=== PATIENT | female | born 1975 | race Two or more races ===

== ENCOUNTER 2024-10-22 17:24 | Emergency (ER) | payer MEDICARE, MEDICAID, SELFPAY ==
--- NOTE | 2024-10-22 17:34 | XR_ITS ---
Examination: CT abdomen and pelvis without contrast. Coronal 3-D reconstructions. Sagittal 2-D reconstructions. Date and time of exam:October 22, 20242037 hours Comparison February 03, 2024 INDICATIONS: Onset abdominal pain today CTDI: vol (mGy): 11.2 DLP: (mGycm): 584 Technique: Axial images of the abdomen have been obtained, 3 mm slice thickness Intravenous contrast material has not been administered. Low dose protocols were performed. One or more of the following dose reduction techniques were used; automated exposure control, adjustment of the mA and/or KV according to patient size, use of iterative reconstruction technique. Findings: No focal liver or splenic lesions Absent gallbladder No pancreatic or adrenal mass No renal or ureteral calculi, no hydronephrosis Aorta normal size 8 mm fat-containing umbilical hernia Absent appendix No bowel obstruction No diverticulitis Atrophic retroverted uterus No adnexal mass No bladder mass or bladder calculi The osseous structures are intact IMPRESSION: No renal or ureteral calculi, no hydronephrosis Absent appendix No bowel obstruction diverticulitis or free air
--- NOTE | 2024-10-22 17:34 | PD.EDRME ---
Rapid Medical Screening Exam RME Arrival date/time: 10/22/24 17:24 49-year-old female with a history of deafness presents to the emergency room with a chief complaint of generalized 10 out of 10 abdominal pain and tenderness, vomiting, diarrhea, fevers x 1 day I have greeted and performed a focused initial assessment of this patient. A comprehensive ED assessment and evaluation of the patient, analysis of all test results, and completion of the medical decision making process will be conducted by additional ED providers. Chief Complaint: Abdominal Pain Vital signs reviewed by provider: Yes
[2024-10-22 17:37] VITALS: BP 147/86; PULSE 95; RESP 16; TEMP 36.9; O2SAT 98; BMI 39.9
[2024-10-22] MEDS: ONDANSETRON ODT 4 MG TABRAP PO (17:40)
[2024-10-22 18:25] LABS: Alanine Aminotransferase 22 U/L (10-49); Albumin/Globulin Ratio 1.8 (1.2-2.2); Alkaline Phosphatase 96 U/L (46-116); Anion Gap 8 (7-16); Aspartate Amino Transferase 23 U/L (0-34); BUN/Creatinine Ratio 20 Ratio (12-20); Bilirubin,Total 0.7 mg/dL (0.3-1.2); Blood Urea Nitrogen 16 mg/dL (9-23); Calcium 9.4 mg/dL (8.3-10.6); Calcium (Corrected) 9.4 mg/dL (8.5-10.1); Carbon Dioxide 27.5 mMol/L (20.0-31.0); Chloride 104 mMol/L (98-107); Creatinine (Component) 0.8 mg/dL (0.6-1.3); Estimated Creatinine Clearance 81.2 mL/min (>60); Globulin 2.8 gm/dL (2.3-3.5); Glucose 109 mg/dL (74-106); Lipase 29 U/L (12-53); Osmolality,Calculated 279 (275-295); Potassium 4.4 mMol/L (3.4-5.1); Sodium 139 mMol/L (136-145); Total Protein 7.8 gm/dL (5.7-8.2); eGFR > 60 See Note
[2024-10-22 18:26] LABS: Basophils % (Auto) 0 % (0-2.5); Eosinophils # (Auto) 0.1 Thou/mm3 (0.0-0.5); Eosinophils % (Auto) 1 % (0-10); Hematocrit 43.7 % (36.0-46.0); Hemoglobin 14.7 g/dL (12.0-16.0); Immature Granulocytes % (Auto) 0 % (0-0); Immature Granulocytes Auto 0.02 Thou/mm3 (0.00-0.00); Lymphocytes # (Auto) 0.8 Thou/mm3 (1.0-4.8); Lymphocytes % (Auto) 7 % (10-50); Mean Corpuscular HGB Conc 33.6 g/dl (31.0-37.0); Mean Corpuscular Hemoglobin 29.3 pg (25.0-35.0); Mean Corpuscular Volume 87 fL (80-100); Monocytes # (Auto) 0.4 Thou/mm3 (0.0-0.8); Monocytes % (Auto) 3 % (0-12); Neutrophils # (Auto) 10.4 Thou/mm3 (1.8-7.7); Neutrophils % (Auto) 88 % (37-80); Nucleated Red Blood Cell % 0 /100 WBC (0); Platelet Count 283 Thou/mm3 (140-440); RDW Standard Deviation 42.1 fL (36.4-46.3); Red Blood Count 5.01 Miln/mm3 (4.00-5.20); White Blood Count 11.7 Thou/mm3 (3.6-11.0)
[2024-10-22 19:07] LABS: Collection Type, Urine Clean Catch
[2024-10-22 19:29] LABS: Bacteria,Urine Rare; Bilirubin,Urine Negative (Negative); Blood,Urine Negative (Negative); Clarity,Urine Clear (Clear/Hazy); Color,Urine Lt-Yellow (Lt Yel-Yel); Glucose, Urine Negative (Negative); Ketones,Urine Negative (Negative); Leukocyte Esterase,Urine Negative (Negative); Nitrite,Urine Negative (Negative); Protein,Urine Negative (Neg - Trace); RBC,Urine 3 /hpf (0-3); Squamous Epithelial Cell,Urine 4 /hpf (0-5); Urobilinogen,Urine Negative mg/dL (0.0-1.0); WBC,Urine 2 /hpf (0-5)
[2024-10-22 19:32] LABS: HCG Qualitative,Urine Negative
[2024-10-22 22:10] VITALS: BP 153/91; PULSE 99; RESP 18; TEMP 37.7; O2SAT 99
--- NOTE | 2024-10-22 22:30 | PD.EDNV ---
Nausea/Vomit./Diarrhea-RME/HPI General Chief complaint: Abdominal Pain Stated complaint: VOMITING, DIARRHEA, ABD PAIN Time Seen by Provider: 10/22/24 22:02 Arrival date/time: 10/22/24 17:24 RME / HPI RME / HPI Narrative: 49-year-old female with a history of deafness presents to the emergency room with a chief complaint of generalized 10 out of 10 abdominal pain and tenderness, vomiting, diarrhea. Severity of symptoms moderate. Vomiting and diarrhea are nonbloody. Denies any fever denies any other complaints no medications taken prior to arrival. Related Data Previous Rx's ?Medication ?Instructions ?Recorded cyclobenzaprine 10 mg tablet 10 mg PO TID PRN muscle spasm #20 11/02/23 tabs celecoxib 100 mg capsule 100 mg PO BID PRN breakthrough 01/15/24 pain, severe #30 caps bisacodyl 5 mg tablet,delayed 5 mg PO QHS 30 days #30 tabs 01/16/24 release (Dulcolax (bisacodyl)) albuterol sulfate 90 mcg/actuation 1 inh inhalation QID PRN shortness 01/31/24 aerosol inhaler (Ventolin HFA) of breath or wheezing #8.5 grams famotidine 20 mg tablet 20 mg PO BID #30 tabs 02/03/24 sucralfate 100 mg/mL oral 5 ml PO QID #400 mL 02/03/24 suspension (Carafate) cetirizine 10 mg tablet 10 mg PO QDAY PRN allergy symptoms 04/19/24 #14 tabs cetirizine 10 mg tablet (All Day 10 mg PO QDAY PRN allergy symptoms 05/08/24 Allergy (cetirizine)) 1 month #30 tabs prednisone 5 mg tablet 5 mg PO BID 1 month #60 tabs 05/08/24 triamcinolone acetonide 0.5 % 1 applic topical BID #15 grams 05/08/24 topical ointment diclofenac sodium 3 % topical gel 1 applic topical BID #100 grams 08/05/24 hydroxyzine HCl 25 mg tablet 25 mg PO BID PRN anxiety #60 tabs 08/05/24 semaglutide (weight loss) 0.25 0.25 mg (0.5 mL) subcut QWEEK #2 mL 08/05/24 mg/0.5 mL subcutaneous pen injector (Hayden) dicyclomine 20 mg tablet 20 mg PO TID #30 tabs 10/22/24 ondansetron HCl 4 mg tablet 4 mg PO Q8H PRN nausea and 10/22/24 vomiting 5 days #20 tabs Allergies Allergy/AdvReac Type Severity Reaction Status Date / Time No Known Allergies Allergy Verified 10/22/24 17:26 Review of Systems Review of Systems Narrative Review of Systems: Review of system reviewed and within normal limits except mentioned in HPI ED Exam Narrative Physical exam: VITAL SIGNS: Reviewed. GENERAL APPEARANCE: Alert and interactive, follows commands, no acute distress, HEAD AND FACE: Non-traumatic. ENT: PERRL, pink conjunctivitis, eyelid no trauma, Mucous membrane moist. NECK: Supple, nontender, no nuchal rigidity. CHEST: No tenderness, no crepitus, no paradoxical movement, no retractions. LUNGS: Clear, well ventilated, symmetric, no rales, no wheezing, no ronchi, no stridor, good breath sounds bilaterally. HEART: Regular rate, regular rhythm, no murmur, no gallops. ABDOMEN: Soft, positive bowel sounds, nondistended, no guarding, nontender, no rebound, no masses, RECTAL: Deferred. GENITAL: Deferred. NEUROLOGICAL: Gross motor function intact sensory function intact, Appropriate for age. MUSCULOSKELETAL: low back nontender, full range of motion. EXTREMITIES: Nontender, full range of motion. SKIN: Color pink, dry, no rash, no lacerations, no abrasions, no contusions. LYMPHATICS: Deferred. Course Quality Measures none Orders Category Date Time Status Bedside COVID-19 Antigen Test NOW Care 10/22/24 17:35 Active Bedside Influenza A&B Antigen Test NOW Care 10/22/24 17:[address] abdomen pelvis wo con Stat Exams 10/22/24 17:34 Completed CBC Stat Lab 10/22/24 17:57 Completed CMP [Comprehensive Metabolic Panel] Stat Lab 10/22/24 17:57 Completed HCG Qualitative,Urine Stat Lab 10/22/24 18:58 Completed Lipase Stat Lab 10/22/24 17:57 Completed UA [Urinalysis] Stat Lab 10/22/24 18:58 Completed Urine Culture Stat Lab 10/22/24 18:58 Received Diphenoxylate/Atrop Sulf [Lomotil] Med 10/22/24 22:24 Discontinued 1 tab PO X1 ONE Ketorolac Inj [Toradol Inj] Med 10/22/24 22:24 Discontinued 30 mg IM X1 ONE Metoclopramide [Reglan] Med 10/22/24 22:24 Discontinued 10 mg PO X1 ONE Ondansetron Odt [Zofran Odt] Med 10/22/24 17:34 Discontinued 4 mg PO X1 ONE Vital Signs Vital signs: Vital Signs Temperature 98.4 F 10/22/24 17:37 Pulse Rate 95 10/22/24 17:37 Respiratory Rate 16 10/22/24 17:37 Blood Pressure 147/86 H 10/22/24 17:37 Pulse Oximetry (%) 98 10/22/24 17:37 Oxygen Delivery Method Room Air 10/22/24 17:37 Nausea/Vomiting/Diarrhea [facility] Narrative [facility] Narrative:: 49-year-old female with a history of deafness presents to the emergency room with a chief complaint of generalized 10 out of 10 abdominal pain and tenderness, vomiting, diarrhea. Severity of symptoms moderate. Vomiting and diarrhea are nonbloody. Denies any fever denies any other complaints no medications taken prior to arrival. Patient's workup today all came back unremarkable. CT scan of the abdomen also came back normal. Urinalysis no UTI. Results discussed with the patient via signs and displays salesperson. Patient understand the plan of care. Patient is stable for discharge home. Patient received Toradol IM, Lomotil, Reglan and Zofran. No recurrence of vomiting or diarrhea in the emergency room Patient appears nontoxic and hemodynamically stable. Patient discharged home and instructed to follow-up with primary care provider in 24 to 48 hours. Instructed to return to the emergency department immediately if worsening of symptoms Patient data External records reviewed:: None Clinical information provided by:: none Social determinants that could affect healthcare access:: none Patient has the following chronic illnesses:: None How is presenting disease/condition affected by chronic disease/condition?: no chronic disease Evaluation data The following diagnostics were reviewed and interpreted by me:: lab results and radiology exam(s) Lab and/or radiology exams considered but not ordered:: None Interpretation Summary: See results in MDM Medications / Prescriptions Medications / Prescriptions considered but not ordered:: None Medication administrations:: Medication Administration History Discontinued Medications Diphenoxylate HCl/Atropine (Diphenoxylate/Atrop Sulf 1 Tab) 1 tab PO X1 ONE Stop: 10/22/24 22:25 Ketorolac Tromethamine (Ketorolac Inj 60 Mg/2 Ml Vial) 30 mg IM X1 ONE Stop: 10/22/24 22:25 Metoclopramide HCl (Metoclopramide 5 Mg Tablet) 10 mg PO X1 ONE Stop: 10/22/24 22:25 Ondansetron HCl (Ondansetron Odt 4 Mg Tabrap) 4 mg PO X1 ONE; Protocol Stop: 10/22/24 17:35 Last Admin: 10/22/24 17:40 Dose: 4 mg Documented By: Lomotil, Toradol IM, Reglan and Zofran Consultations Consultation(s) initiated? (list below): No Diagnosis Nausea Differential Diagnosis: traveler's diarrhea and gastroenteritis Most likely diagnosis given after review of the tests above:: Gastroenteritis Admission Indicated Admission indicated?: not indicated Explain why admission is indicated or not indicated:: Stable Admission Request Was there a request for admission?: No Disposition Plan Disposition Plan: Discharge Discharge Attestation Discharge Attestation: The patient was given an opportunity to ask questions and understood the discharge instructions. Discharge instructions specifically effects, indications for sooner follow up or return to the emergency department, and the expected course of current diagnosis. Patient condition: Stable Discharge Plan Plan Patient Disposition: HOME (Self Care) Disposition Comment: stable Prescriptions/Referrals Prescriptions/Med Rec: New ondansetron HCl 4 mg tablet 4 mg PO Q8H PRN (Reason: nausea and vomiting) 5 Days Qty: 20 0RF dicyclomine 20 mg tablet 20 mg PO TID Qty: 30 0RF No Action celecoxib 100 mg capsule 100 mg PO BID PRN (Reason: breakthrough pain, severe) Qty: 30 0RF triamcinolone acetonide 0.5 % ointment 1 applic topical BID Qty: 15 0RF cetirizine [All Day Allergy (cetirizine)] 10 mg tablet 10 mg PO QDAY PRN (Reason: allergy symptoms) 30 Days Qty: 30 2RF prednisone 5 mg tablet 5 mg PO BID 30 Days Qty: 60 2RF Taper: Prednisone Taper 5 mg TWICE A DAY for 30 Days and 12 Hours bisacodyl [Dulcolax (bisacodyl)] 5 mg tablet,delayed release (DR/EC) 5 mg PO QHS 30 Days Qty: 30 1RF hydroxyzine HCl 25 mg tablet 25 mg PO BID PRN (Reason: anxiety) Qty: 60 0RF Rx Instructions: Bobo Vaughn Medical License number [id number] Wegovy 0.25 mg/0.5 mL pen injector 0.25 mg subcut QWEEK Qty: 2 3RF Rx Instructions: administer weeks 1 through 4 of therapy diclofenac sodium 3 % gel 1 applic topical BID Qty: 100 0RF cyclobenzaprine 10 mg tablet 10 mg PO TID PRN (Reason: muscle spasm) Qty: 20 0RF albuterol sulfate [Ventolin HFA] 90 mcg/actuation HFA aerosol inhaler 1 inh inhalation QID PRN (Reason: shortness of breath or wheezing) Qty: 8.5 0RF famotidine 20 mg tablet 20 mg PO BID Qty: 30 0RF sucralfate [Carafate] 100 mg/mL suspension 5 ml PO QID Qty: 400 0RF Rx Instructions: swish in mouth and swallow; use after food/drink cetirizine 10 mg tablet 10 mg PO QDAY PRN (Reason: allergy symptoms) Qty: 14 0RF Referrals: No Primary/Family,Physician [Primary Care Provider] - In 1 week Problem List Clinical Impression: Gastroenteritis Patient/Caregiver Discharge Instructions Discharge Activity: activity as tolerated Education Materials: ED Gastroenteritis, Noninfectious Additional Instructions: Thank you for the opportunity for serving you today. You are stable for discharged . You are advised to: Follow-up with your PCP in 1 to 2 days Return to ED for worsening of symptoms Increase oral fluids Take medication as prescribed Print Language: Sign Language Stand Alone Forms: Audrey Award Info., Patient Portal Info Letter PA/MONUMENTAL STONEMASON Supervising Physician PA/MONUMENTAL STONEMASON Supervising Physician: MD Ramos
[2024-10-22] MEDS: DIPHENOXYLATE/ATROP SULF 1 TAB PO (22:33)
[2024-10-22] MEDS: METOCLOPRAMIDE 5 MG TABLET 10 MG PO (22:33)
[2024-10-22] MEDS: KETOROLAC INJ 60 MG/2 ML VIAL 30 MG IM (22:35)
== END 2024-10-22 23:11 | disposition home or self-care (01) ==
PROVIDERS: Nurse Practitioner Family; Emergency Provider Emergency Medicine
DX: K52.9 Noninfective gastroenteritis and colitis, unspecified (principal)
CPT/HCPCS: 36415; 74176; 80053; 81001; 81025; 83690; 85025; 87086; 87400; 87811; 96372; 99284; J1885; Q0162; A9270

== ENCOUNTER 2024-10-30 13:25 | Outpatient (AMB) | payer MEDICARE, SELFPAY ==
[2024-10-30 13:35] VITALS: BP 128/82; PULSE 72; RESP 16; TEMP 36.4; O2SAT 95; BMI 40.4
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
== END 2024-10-30 14:36 | disposition home or self-care (01) ==
LOC: HODAHC 13:25
PROVIDERS: Supervising Provider Internal Medicine
DX: K59.00 Constipation, unspecified (principal); R11.0 Nausea; R19.7 Diarrhea, unspecified; M35.3 Polymyalgia rheumatica; E66.01 Morbid (severe) obesity due to excess calories; Z68.41 Body mass index [BMI] 40.0-44.9, adult
CPT/HCPCS: 99213; G0463

== ENCOUNTER 2025-02-07 17:19 | Emergency (ER) | payer MEDICARE, MEDICAID, SELFPAY ==
[2025-02-07 17:31] VITALS: BP 152/94; PULSE 99; RESP 20; TEMP 36.7; O2SAT 95; BMI 34.5
--- NOTE | 2025-02-07 18:08 | PD.EDADULT ---
ED General RME/HPI General Chief complaint: General Adult/Misc Complain Stated complaint: DIFF BREATHING D/T ALLERGIES, CAN'T SLEEP Time Seen by Provider: 02/07/25 17:41 Source: patient Arrival date/time: 02/07/25 17:19 49-year-old female who is deaf complains of a congested nose that will not allow her to breathe. Also complains of a bloody nose on the right nasal passage this happened on Saturday up to 3 different times. Also complains of sneezing and not being able to sleep. Mode of arrival: ambulatory Limitations: no limitations RME / HPI Onset (ago): day(s) (3 days.) Location: face (Nose) Severity: moderate Severity scale (1-10): 5 Related Data Previous Rx's ?Medication ?Instructions ?Recorded cyclobenzaprine 10 mg tablet 10 mg PO TID PRN muscle spasm #20 11/02/23 tabs celecoxib 100 mg capsule 100 mg PO BID PRN breakthrough 01/15/24 pain, severe #30 caps albuterol sulfate 90 mcg/actuation 1 inh inhalation QID PRN shortness 01/31/24 aerosol inhaler (Ventolin HFA) of breath or wheezing #8.5 grams sucralfate 100 mg/mL oral 5 ml PO QID #400 mL 02/03/24 suspension (Carafate) cetirizine 10 mg tablet 10 mg PO QDAY PRN allergy symptoms 04/19/24 #14 tabs cetirizine 10 mg tablet (All Day 10 mg PO QDAY PRN allergy symptoms 05/08/24 Allergy (cetirizine)) 1 month #30 tabs triamcinolone acetonide 0.5 % 1 applic topical BID #15 grams 05/08/24 topical ointment hydroxyzine HCl 25 mg tablet 25 mg PO BID PRN anxiety #60 tabs 08/05/24 semaglutide (weight loss) 0.25 0.25 mg (0.5 mL) subcut QWEEK #2 mL 08/05/24 mg/0.5 mL subcutaneous pen injector (Wegovy) bisacodyl 5 mg tablet,delayed 5 mg PO QHS 30 days #30 tabs 10/30/24 release (Dulcolax (bisacodyl)) psyllium husk 0.4 gram capsule 0.4 g PO QDAY PRN constipation #30 10/30/24 caps dicyclomine 20 mg tablet 20 mg PO TID #30 tabs 11/26/24 famotidine 20 mg tablet 20 mg PO BID #30 tabs 11/26/24 metoclopramide HCl 10 mg tablet 10 mg PO Q6H PRN nausea or 11/26/24 constipation #60 tabs prednisone 5 mg tablet 5 mg PO BID 1 month #60 tabs 11/26/24 wheat dextrin 3 gram/4 gram oral 1 packet PO QDAY constipation #152 11/26/24 powder (Benefiber Sugar Free grams (dextrin)) diclofenac sodium 1 % topical gel 2 g topical QID PRN For Arthritis 12/28/24 pain #100 grams fluticasone propionate 50 2 spray intranasal QDAY #16 grams 02/07/25 mcg/actuation nasal spray,suspension (Flonase Allergy Relief) Allergies Allergy/AdvReac Type Severity Reaction Status Date / Time No Known Allergies Allergy Verified 02/07/25 17:23 Review of Systems Constitutional Constitutional: Reports system reviewed and no additional complaints, except as documented Eyes Eyes: Reports system reviewed and no additional complaints, except as documented, Denies dry eyes, Denies exophthalmos and Reports floaters Cardiovascular Cardiovascular: Denies chest pain with activity and Denies claudication ED Exam General Limitations: Present no limitations General appearance: Present alert and in no apparent distress Head Head exam: Present atraumatic Eye Eye exam: Present normal appearance, PERRL and EOMI ENT ENT exam: Present normal exam, normal oropharynx and mucous membranes moist Neck Neck exam: Present normal inspection, full ROM and trachea midline Chest Chest inspection: Present normal inspection and symmetric chest wall rise Respiratory Respiratory exam: Present normal lung sounds bilaterally Cardiovascular Cardiovascular exam: Present regular rate, normal rhythm and normal heart sounds Extremities Exam Extremities exam: Present normal inspection and full ROM Back Exam Back exam: Present normal inspection and full ROM Neurological Exam Neurological exam: Present alert, oriented X3 and CN II-XII intact Psychiatric Psychiatric exam: Present normal affect and normal mood Skin Skin exam: Present warm, dry, intact and normal color Course Course Course Narrative: Patient will have Flonase sent to the pharmacy of her choice and she will be discharged in no apparent distress. Quality Measures none Vital Signs Vital signs: Vital Signs Temperature 98.1 F 02/07/25 17:31 Pulse Rate 99 02/07/25 17:31 Respiratory Rate 20 02/07/25 17:31 Blood Pressure 152/94 H 02/07/25 17:31 Pulse Oximetry (%) 95 02/07/25 17:31 Oxygen Delivery Method Room Air 02/07/25 17:31 Pulse ox room air is 95% Discharge Plan Plan Patient Disposition: HOME (Self Care) Discharge Disposition comment: Patient discharged in no apparent distress Patient condition on transfer: Stable Prescriptions/Referrals Prescriptions/Med Rec: New fluticasone propionate [Flonase Allergy Relief] 50 mcg/actuation spray,suspension 2 spray intranasal QDAY MDD No more than once a day Qty: 16 0RF Rx Instructions: administer into each nostril No Action bisacodyl [Dulcolax (bisacodyl)] 5 mg tablet,delayed release (DR/EC) 5 mg PO QHS 30 Days Qty: 30 1RF psyllium husk 0.4 gram capsule 0.4 g PO QDAY PRN (Reason: constipation) Qty: 30 0RF celecoxib 100 mg capsule 100 mg PO BID PRN (Reason: breakthrough pain, severe) Qty: 30 0RF triamcinolone acetonide 0.5 % ointment 1 applic topical BID Qty: 15 0RF cetirizine [All Day Allergy (cetirizine)] 10 mg tablet 10 mg PO QDAY PRN (Reason: allergy symptoms) 30 Days Qty: 30 2RF hydroxyzine HCl 25 mg tablet 25 mg PO BID PRN (Reason: anxiety) Qty: 60 0RF Rx Instructions: [facility] License number [id number] Wegovy 0.25 mg/0.5 mL pen injector 0.25 mg subcut QWEEK Qty: 2 3RF Rx Instructions: administer weeks 1 through 4 of therapy metoclopramide HCl 10 mg tablet 10 mg PO Q6H PRN (Reason: nausea or constipation) Qty: 60 0RF prednisone 5 mg tablet 5 mg PO BID 30 Days Qty: 60 2RF Taper: Prednisone Taper 15 mg DAILY for 10 Days and 24 Hours 10 mg DAILY for 10 Days and 24 Hours 15 mg DAILY for 10 Days and 24 Hours Benefiber Sugar Free (dextrin) 3 gram/4 gram powder 1 packet PO QDAY Qty: 152 1RF Rx Instructions: mix into at least 4 oz water or juice before administering dicyclomine 20 mg tablet 20 mg PO TID Qty: 30 0RF famotidine 20 mg tablet 20 mg PO BID Qty: 30 0RF diclofenac sodium 1 % gel 2 g topical QID MDD QID PRN (Reason: For Arthritis pain) Qty: 100 1RF Rx Instructions: apply to single elbow, wrist or hand; for hand includes palm/fingers/back of hand cyclobenzaprine 10 mg tablet 10 mg PO TID PRN (Reason: muscle spasm) Qty: 20 0RF albuterol sulfate [Ventolin HFA] 90 mcg/actuation HFA aerosol inhaler 1 inh inhalation QID PRN (Reason: shortness of breath or wheezing) Qty: 8.5 0RF sucralfate [Carafate] 100 mg/mL suspension 5 ml PO QID Qty: 400 0RF Rx Instructions: swish in mouth and swallow; use after food/drink cetirizine 10 mg tablet 10 mg PO QDAY PRN (Reason: allergy symptoms) Qty: 14 0RF Problem List Clinical Impression: Nose congested Patient/Caregiver Discharge Instructions Discharge Activity: activity as tolerated Print Language: Sign Language Stand Alone Forms: Audrey Award Info., Patient Portal Info Letter PA/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 AND GAS EXPLORATION TECHNICIAN Supervising Physician PA/OIL AND GAS EXPLORATION TECHNICIAN Supervising Physician: BASILIA ZAMORANO MDM Narrative Sign Out note: N/A MDM hospital course (for use when minimal MDM required): N/A Clinical Information Provided by: patient Medical Records reviewed None Chronic Illness/Social Conditions which may negatively complicate care or outcome(s)-explain: other (Asthma) Labs Lab(s) Interpretation(s): N/A Imaging Imaging interpretation: none Medication Administration(s) none None Diagnosis Differential Diagnosis ED Complaint MDM: Epistaxis, sinusitis, upper respiratory infection
== END 2025-02-07 18:24 | disposition home or self-care (01) ==
PROVIDERS: Emergency Provider Emergency Medicine
DX: R09.81 Nasal congestion (principal)
CPT/HCPCS: 99281

== ENCOUNTER 2025-03-18 18:07 | Emergency (ER) | payer MEDICARE, MEDICAID, SELFPAY ==
[2025-03-18 20:05] VITALS: BP 137/86; PULSE 78; RESP 20; TEMP 36.7; O2SAT 98
--- NOTE | 2025-03-18 20:23 | EKG_ITS ---
[facility] Test Date: 2025-03-18 Pat Name: LINNEA LANCE Department: Room: - Gender: Female Management Lead: : 1975 Requested By: Kyle Bustamante Order Number: [id number] Reading MD: Kyle Bustamante Measurements Intervals [place] Rate: 65 P: 49 RI: 171 QRS: 47 QRSD: 92 T: 52 QT: 395 QTc: 412 Interpretive Statements SINUS RHYTHM LOW QRS VOLTAGE IN PRECORDIAL LEADS [QRS DEFLECTION < 1.0 mV IN CHEST LEADS] SEPTAL MYOCARDIAL INFARCTION , OF INDETERMINATE AGE [40+ ms Q WAVE IN V1/V2] Compared to ECG 04/19/2024 14:43:44 Low QRS voltage now present Myocardial infarct finding now present /store/S0/[id number]/ecg/[id number].pdf
--- NOTE | 2025-03-18 20:23 | XR_ITS ---
Examination: PA and lateral chest 2 views TECHNIQUE: Upright chest 2 views Date and time: March 18, 20252034 hours Comparison July 25, 2024 INDICATIONS: Cough and chest pain study 4 days ago. FINDINGS: Mild prominence of ventricle Mild vascular congestion Surgical clips overlie the upper mediastinum No pneumonia or pulmonary edema. IMPRESSION: Mild vascular congestion No lobar pneumonia
--- NOTE | 2025-03-18 20:24 | EDRME_ITS ---
Rapid Medical Screening Exam [facility] Arrival date/time: 03/18/25 18:07 49F with history of deafness presents to ED with 1 week of cough, fevers/chills, CP, and SOB. Patient went to clinic yesterday and tested negative for flu, COVID, and strep. No ABX were given. Chief Complaint: Shortness of Breath/Dyspnea Vital signs: Vital Signs Temperature 98.1 F 03/18/25 20:05 Pulse Rate 78 03/18/25 20:05 Respiratory Rate 20 03/18/25 20:05 Blood Pressure 137/86 H 03/18/25 20:05 Pulse Oximetry (%) 98 03/18/25 20:05 Oxygen Delivery Method Room Air 03/18/25 20:05
[2025-03-18 20:53] LABS: Lactate (Lactic Acid) 1.1 mMol/L (0.4-2.0)
[2025-03-18 20:54] LABS: Basophils # (Auto) 0.1 Thou/mm3 (0.0-0.2); Basophils % (Auto) 1 % (0-2.5); Eosinophils # (Auto) 0.1 Thou/mm3 (0.0-0.5); Eosinophils % (Auto) 1 % (0-10); Hematocrit 41.5 % (36.0-46.0); Hemoglobin 13.9 g/dL (12.0-16.0); Immature Granulocytes % (Auto) 1 % (0-0); Immature Granulocytes Auto 0.07 Thou/mm3 (0.00-0.00); Lymphocytes # (Auto) 4.9 Thou/mm3 (1.0-4.8); Lymphocytes % (Auto) 39 % (10-50); Mean Corpuscular HGB Conc 33.5 g/dl (31.0-37.0); Mean Corpuscular Hemoglobin 29.1 pg (25.0-35.0); Mean Corpuscular Volume 87 fL (80-100); Monocytes # (Auto) 0.7 Thou/mm3 (0.0-0.8); Monocytes % (Auto) 6 % (0-12); Neutrophils # (Auto) 6.6 Thou/mm3 (1.8-7.7); Neutrophils % (Auto) 53 % (37-80); Nucleated Red Blood Cell % 0 /100 WBC (0); Platelet Count 325 Thou/mm3 (140-440); Red Blood Count 4.77 Miln/mm3 (4.00-5.20); White Blood Count 12.5 Thou/mm3 (3.6-11.0)
[2025-03-18 21:10] LABS: B-Type Natriuretic Peptide < 20 pg/mL (0-100)
[2025-03-18 21:20] LABS: Alanine Aminotransferase 21 U/L (10-49); Albumin, Serum 4.6 gm/dL (3.5-5.0); Albumin/Globulin Ratio 1.7 (1.2-2.2); Alkaline Phosphatase 86 U/L (46-116); Anion Gap 8 (7-16); Aspartate Amino Transferase 16 U/L (0-34); BUN/Creatinine Ratio 18 Ratio (12-20); Bilirubin,Total 0.3 mg/dL (0.3-1.2); Blood Urea Nitrogen 16 mg/dL (9-23); Calcium 8.8 mg/dL (8.3-10.6); Calcium (Corrected) 8.8 mg/dL (8.5-10.1); Carbon Dioxide 27.9 mMol/L (20.0-31.0); Chloride 103 mMol/L (98-107); Creatinine (Component) 0.9 mg/dL (0.6-1.3); Globulin 2.7 gm/dL (2.3-3.5); Glucose 94 mg/dL (74-106); Osmolality,Calculated 278 (275-295); Potassium 3.6 mMol/L (3.4-5.1); Procalcitonin < 0.04 ng/ml (0.0-0.49); Sodium 139 mMol/L (136-145); Total Protein 7.3 gm/dL (5.7-8.2); Troponin I < 0.002 ng/mL (0.0-0.045); eGFR > 60 See Note
--- NOTE | 2025-03-18 23:01 | PD.EDSOB ---
ED SOB =RME/HPI General Chief Complaint: Shortness of Breath/Dyspnea Stated Complaint: Asthma, cough X 4 days, fever, SOB Arrival date/time: 03/18/25 18:07 RME / HPI RME / HPI Narrative: 03/18/25 18:07 49F with history of deafness presents to ED with 1 week of cough, fevers/chills, CP, and SOB. Patient went to clinic yesterday and tested negative for flu, COVID, and strep. No ABX were given. Dr. Lebron?s Main ED Evaluation: 49yo female with a history of deafness presents to the ED for complaints of wheezing, chest pain, and fatigue that started tonight. Patient states she was trying to go to sleep tonight when she started having chest tightness and started wheezing. Patient denies any fever, chills, N/V or any other associated symptoms. NKA. Related Data Previous Rx's ?Medication ?Instructions ?Recorded cyclobenzaprine 10 mg tablet 10 mg PO TID PRN muscle spasm #20 11/02/23 tabs celecoxib 100 mg capsule 100 mg PO BID PRN breakthrough 01/15/24 pain, severe #30 caps albuterol sulfate 90 mcg/actuation 1 inh inhalation QID PRN shortness 01/31/24 aerosol inhaler (Ventolin HFA) of breath or wheezing #8.5 grams sucralfate 100 mg/mL oral 5 ml PO QID #400 mL 02/03/24 suspension (Carafate) cetirizine 10 mg tablet 10 mg PO QDAY PRN allergy symptoms 04/19/24 #14 tabs cetirizine 10 mg tablet (All Day 10 mg PO QDAY PRN allergy symptoms 05/08/24 Allergy (cetirizine)) 1 month #30 tabs triamcinolone acetonide 0.5 % 1 applic topical BID #15 grams 05/08/24 topical ointment hydroxyzine HCl 25 mg tablet 25 mg PO BID PRN anxiety #60 tabs 08/05/24 semaglutide (weight loss) 0.25 0.25 mg (0.5 mL) subcut QWEEK #2 mL 08/05/24 mg/0.5 mL subcutaneous pen injector (Weashuvy) bisacodyl 5 mg tablet,delayed 5 mg PO QHS 30 days #30 tabs 10/30/24 release (Dulcolax (bisacodyl)) psyllium husk 0.4 gram capsule 0.4 g PO QDAY PRN constipation #30 10/30/24 caps dicyclomine 20 mg tablet 20 mg PO TID #30 tabs 11/26/24 famotidine 20 mg tablet 20 mg PO BID #30 tabs 11/26/24 metoclopramide HCl 10 mg tablet 10 mg PO Q6H PRN nausea or 11/26/24 constipation #60 tabs prednisone 5 mg tablet 5 mg PO BID 1 month #60 tabs 11/26/24 wheat dextrin 3 gram/4 gram oral 1 packet PO QDAY constipation #152 11/26/24 powder (Benefiber Sugar Free grams (dextrin)) diclofenac sodium 1 % topical gel 2 g topical QID PRN For Arthritis 12/28/24 pain #100 grams fluticasone propionate 50 2 spray intranasal QDAY #16 grams 02/07/25 mcg/actuation nasal spray,suspension (Flonase Allergy Relief) Allergies Allergy/AdvReac Type Severity Reaction Status Date / Time No Known Allergies Allergy Verified 03/18/25 18:12 Review of Systems Review of Systems Systems Reviewed: All systems reviewed, normal except as documented Past Medical History Past Medical History CARDIAC: Negative Cardiac Disorders or Congestive Heart Failure RESPIRATORY: Negative Chronic Obstructive Pulmonary Disease (COPD) GASTROINTESTINAL: Negative Gastrointestinal Disorders GENITOURINARY: Negative Renal Disease REPRODUCTIVE: Positive Previous Pregnancies ENT: Positive Deafness ENDOCRINE: Negative Diabetes Mellitus Type 1 or Diabetes Mellitus Type 2 HEMATOLOGIC: Negative Blood Disorders or Anemia Surgical History SURGICAL: Positive Section Social History SMOKING STATUS: Never smoker SUBSTANCE USE: does not use ED Exam Narrative Physical exam: GENERAL APPEARANCE: alert and oriented x 4, well-developed, well-nourished, no acute distress VITALS: All vitals were reviewed and the pulse ox is 98% on room air, which is normal according to my interpretation. HEENT: Normocephalic, atraumatic; pupils equal, round, reactive to light; EOMI; mucous membranes pink, moist; oropharynx clear NECK: Supple LUNGS: mild wheezes at the left base, no rales, no rhonchi HEART: Regular rate, regular rhythm; normal S1, S2; no murmurs ABDOMEN: non distended; normal BS; soft, no tenderness, no guarding, no rebound; no masses, no organomegaly, no hernia BACK: no CVA tenderness EXTREMITIES: atraumatic; no edema NEUROLOGIC: awake; alert and oriented x4; cranial nerves II-XII grossly intact; no focal sensory or motor deficits PSYCHIATRIC: appropriate mood and affect SKIN: warm, dry, normal color; no rashes Course Quality Measures none Orders Category Date Time Status EKG (ED ONLY) *Do not use* NOW Care 03/18/25 20:23 Completed EKG (ED Only) Stat Exams 03/18/25 20:23 Draft XR chest 2V Stat Exams 03/18/25 20:23 Completed B-Type Natriuretic Peptide Stat Lab 03/18/25 20:35 Completed CBC Stat Lab 03/18/25 20:35 Completed Comprehensive Metabolic Panel Stat Lab 03/18/25 20:35 Completed Lactate (Lactic Acid) Stat Lab 03/18/25 20:35 Completed Procalcitonin Stat Lab 03/18/25 20:35 Completed Troponin I Stat Lab 03/18/25 20:35 Completed Albuterol/Ipratr Rt Lexi [Duoneb Rt Lexi] Med 03/18/25 23:15 Discontinued 3 ml INH X1 ONE Albuterol/Ipratr Rt Lexi [Duoneb Rt Lexi] Med 03/18/25 23:16 Discontinued 3 ml INH X1 ONE Vital Signs Vital signs: Vital Signs Temperature 98.1 F 03/18/25 20:05 Pulse Rate 78 03/18/25 20:05 Respiratory Rate 20 03/18/25 20:05 Blood Pressure 137/86 H 03/18/25 20:05 Pulse Oximetry (%) 98 03/18/25 20:05 Oxygen Delivery Method Room Air 03/18/25 20:05 Shortness of Breath / Dyspnea MDM Narrative MDM Narrative:: Scribe Attestation: 03/18/25 - Caron Avila am scribing for and in the presence of Dr. Lebrno. Patient data External records reviewed:: [facility] previous records (Per chart review, patient was seen here on 02/07/25 for congestion.) Clinical information provided by:: patient Social determinants that could affect healthcare access:: none Patient has the following chronic illnesses:: deafness How is presenting disease/condition affected by chronic disease/condition?: uneffected by Evaluation data The following diagnostics were reviewed and interpreted by me:: lab results, radiology exam(s) and EKG tracing(s) Lab and/or radiology exams considered but not ordered:: none Interpretation Summary: WBC 12.5, CMP normal, Lactic Acid normal, Troponin normal, BNP normal, Procalcitonin normal. EKG done at 2024, NSR, rate of 65, Q waves in V1 and V2, normal axis, no acute ST or T wave changes, according to my interpretation. [facility] Report Signed Patient: LINNEA LANCE [facility]. Record#: [id number] Birthdate: 1975 Age/Sex: 49 / F Location: [facility] Attending Dr: Ordering Physician: Kyle Bustamante PA-C Date of Service: 03/18/25 Procedure(s): XR chest 2V Accession Number(s): [id number] cc: Kamran Verdugo MD; NO PRIMARY/FAMILY,PHYSICIAN; Kyle Bustamante PA-C~ Examination: PA and lateral chest 2 views TECHNIQUE: Upright chest 2 views Date and time: March 18, 20252034 hours Comparison July 25, 2024 INDICATIONS: Cough and chest pain study 4 days ago. FINDINGS: Mild prominence of ventricle Mild vascular congestion Surgical clips overlie the upper mediastinum No pneumonia or pulmonary edema. IMPRESSION: Mild vascular congestion No lobar pneumonia Dictated By: Kamran Verdugo MD Signed By: <Electronically signed by Kamran Verdugo MD in [place]> 03/18/252049 Medications / Prescriptions Medications or Prescriptions considered but not ordered:: none Medication administrations:: Medication Administration History Discontinued Medications Albuterol/Ipratropium (Albuterol/Ipratropium (Duoneb) Rt Lexi 3 Ml Nebu) 3 ml INH X1 ONE Stop: 03/18/25 23:16 Last Admin: 03/18/25 23:25 Dose: 3 ml Documented By: NIKOLAI Albuterol/Ipratropium (Albuterol/Ipratropium (Duoneb) Rt Lexi 3 Ml Nebu) 3 ml INH X1 ONE Stop: 03/18/25 23:17 Last Admin: 03/18/25 23:25 Dose: 3 ml Documented By: NIKOLAI see above Consultations Consultation(s) initiated? (list below): No Diagnosis Shortness of Breath Differential Diagnosis: community acquired pneumonia and other (URI, viral syndrome, COVID, Influenza) Most likely diagnosis given after review of the tests above:: see clinical impression below Admission Indicated Admission indicated?: not indicated Admission Request Was there a request for admission?: No Disposition Plan Disposition Plan: Discharge Discharge Attestation Discharge Attestation: The patient and all family members were given an opportunity to ask questions and understood the discharge instructions. Discharge instructions specifically effects, indications for sooner follow up or return to the emergency department, and the expected course of current diagnosis. Patient condition: Stable Discharge Plan Plan Patient Disposition: HOME (Self Care) Prescriptions/Referrals Prescriptions/Med Rec: No Action bisacodyl [Dulcolax (bisacodyl)] 5 mg tablet,delayed release (DR/EC) 5 mg PO QHS 30 Days Qty: 30 1RF psyllium husk 0.4 gram capsule 0.4 g PO QDAY PRN (Reason: constipation) Qty: 30 0RF celecoxib 100 mg capsule 100 mg PO BID PRN (Reason: breakthrough pain, severe) Qty: 30 0RF triamcinolone acetonide 0.5 % ointment 1 applic topical BID Qty: 15 0RF cetirizine [All Day Allergy (cetirizine)] 10 mg tablet 10 mg PO QDAY PRN (Reason: allergy symptoms) 30 Days Qty: 30 2RF hydroxyzine HCl 25 mg tablet 25 mg PO BID PRN (Reason: anxiety) Qty: 60 0RF Rx Instructions: [facility] Medical License number [id number] Wegovy 0.25 mg/0.5 mL pen injector 0.25 mg subcut QWEEK Qty: 2 3RF Rx Instructions: administer weeks 1 through 4 of therapy metoclopramide HCl 10 mg tablet 10 mg PO Q6H PRN (Reason: nausea or constipation) Qty: 60 0RF prednisone 5 mg tablet 5 mg PO BID 30 Days Qty: 60 2RF Taper: Prednisone Taper 15 mg DAILY for 10 Days and 24 Hours 10 mg DAILY for 10 Days and 24 Hours 15 mg DAILY for 10 Days and 24 Hours Benefiber Sugar Free (dextrin) 3 gram/4 gram powder 1 packet PO QDAY Qty: 152 1RF Rx Instructions: mix into at least 4 oz water or juice before administering dicyclomine 20 mg tablet 20 mg PO TID Qty: 30 0RF famotidine 20 mg tablet 20 mg PO BID Qty: 30 0RF diclofenac sodium 1 % gel 2 g topical QID MDD QID PRN (Reason: For Arthritis pain) Qty: 100 1RF Rx Instructions: apply to single elbow, wrist or hand; for hand includes palm/fingers/back of hand cyclobenzaprine 10 mg tablet 10 mg PO TID PRN (Reason: muscle spasm) Qty: 20 0RF albuterol sulfate [Ventolin HFA] 90 mcg/actuation HFA aerosol inhaler 1 inh inhalation QID PRN (Reason: shortness of breath or wheezing) Qty: 8.5 0RF sucralfate [Carafate] 100 mg/mL suspension 5 ml PO QID Qty: 400 0RF Rx Instructions: swish in mouth and swallow; use after food/drink cetirizine 10 mg tablet 10 mg PO QDAY PRN (Reason: allergy symptoms) Qty: 14 0RF fluticasone propionate [Flonase Allergy Relief] 50 mcg/actuation spray,suspension 2 spray intranasal QDAY MDD No more than once a day Qty: 16 0RF Rx Instructions: administer into each nostril Referrals: No Primary/Family,Physician [Primary Care Provider] - In 1 week Problem List Clinical Impression: Wheezes Patient/Caregiver Discharge Instructions Education Materials: ED Bronchitis with Wheezing (Adult) Print Language: Sign Language Stand Alone Forms: Audrey Award Info., Patient Portal Info Letter
[2025-03-18 23:20] VITALS: BP 174/95; PULSE 65; RESP 18; TEMP 36.6; O2SAT 98
[2025-03-18] MEDS: ALBUTEROL/IPRATROPIUM (Duoneb) RT SOL 3 ML NEBU INH ×2 (23:25)
[2025-03-18 23:28] VITALS: PULSE 65; RESP 17; O2SAT 100
== END 2025-03-19 00:11 | disposition home or self-care (01) ==
PROVIDERS: Physician Assistant; Emergency Provider Emergency Medicine
DX: R06.2 Wheezing (principal); R09.89 Other specified symptoms and signs involving the circulatory and respiratory systems; I25.2 Old myocardial infarction
CPT/HCPCS: 36415; 71046; 80053; 83605; 83880; 84145; 84484; 85025; 93005; 94640; 99283; A9270

== ENCOUNTER 2025-04-13 10:07 | Outpatient (AMB) | payer MEDICAID, SELFPAY ==
[2025-04-13 10:27] VITALS: BP 148/86; PULSE 67; RESP 18; TEMP 36.4; O2SAT 96; BMI 34.5
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
== END 2025-04-13 11:20 | disposition home or self-care (01) ==
LOC: HODAHC 10:07
DX: M35.3 Polymyalgia rheumatica (principal); F41.9 Anxiety disorder, unspecified; E66.01 Morbid (severe) obesity due to excess calories; Z68.34 Body mass index [BMI] 34.0-34.9, adult; J45.909 Unspecified asthma, uncomplicated
CPT/HCPCS: 99213; G0463

== ENCOUNTER 2025-07-19 20:56 | Emergency (ER) | payer MEDICARE, MEDICAID, SELFPAY ==
[2025-07-19 20:57] VITALS: BMI 39.4
[2025-07-19 22:31] VITALS: BP 188/79; PULSE 73; RESP 16; TEMP 36.9; O2SAT 96
--- NOTE | 2025-07-19 23:42 | XR_ITS ---
EXAMINATION: PA lateral chest 2 views TECHNIQUE: Upright PA lateral chest 2 views Date and time: July 19, 2025, 1148 hours INDICATIONS: Chest pain today FINDINGS: Mediastinal clips Mild prominence left ventricle No pneumonia or pulmonary edema Chronic wedging upper dorsal vertebral bodies IMPRESSION: Mild prominence left ventricle. No pneumonia or pulmonary edema
--- NOTE | 2025-07-19 23:43 | PD.EDADULT ---
ED General RME/HPI General Chief complaint: General Adult/Misc Complain Stated complaint: THINKS BP HIGH, HAVING LOT OF STRESS Time Seen by Provider: 07/19/25 21:28 Arrival date/time: 07/19/25 20:56 49-year-old, hearing-impaired, female with a history of anxiety, hypertension, and medication noncompliance reports with complaints of left-sided chest pain that radiates to her arm that began this afternoon. Patient also admits to having a history of anxiety and is unsure if it is anxiety or her heart that is causing the problem. Patient states that she has noticed that her blood pressure has been elevated over the last few weeks and admits that she forgets to take her blood pressure medications regularly. She denies any nausea or vomiting abdominal pain weakness but does complain of fatigue. She denies take any medications for symptoms Limitations: no limitations Related Data Previous Rx's ?Medication ?Instructions ?Recorded cyclobenzaprine 10 mg tablet 10 mg PO TID PRN muscle spasm #20 11/02/23 tabs celecoxib 100 mg capsule 100 mg PO BID PRN breakthrough 01/15/24 pain, severe #30 caps sucralfate 100 mg/mL oral 5 ml PO QID #400 mL 02/03/24 suspension (Carafate) cetirizine 10 mg tablet 10 mg PO QDAY PRN allergy symptoms 04/19/24 #14 tabs triamcinolone acetonide 0.5 % 1 applic topical BID #15 grams 05/08/24 topical ointment semaglutide (weight loss) 0.25 0.25 mg (0.5 mL) subcut QWEEK #2 mL 08/05/24 mg/0.5 mL subcutaneous pen injector (Wegovy) bisacodyl 5 mg tablet,delayed 5 mg PO QHS 30 days #30 tabs 10/30/24 release (Dulcolax (bisacodyl)) psyllium husk 0.4 gram capsule 0.4 g PO QDAY PRN constipation #30 10/30/24 caps dicyclomine 20 mg tablet 20 mg PO TID #30 tabs 11/26/24 famotidine 20 mg tablet 20 mg PO BID #30 tabs 11/26/24 metoclopramide HCl 10 mg tablet 10 mg PO Q6H PRN nausea or 11/26/24 constipation #60 tabs prednisone 5 mg tablet 5 mg PO BID 1 month #60 tabs 11/26/24 wheat dextrin 3 gram/4 gram oral 1 packet PO QDAY constipation #152 11/26/24 powder (Benefiber Sugar Free grams (dextrin)) fluticasone propionate 50 2 spray intranasal QDAY #16 grams 02/07/25 mcg/actuation nasal spray,suspension (Flonase Allergy Relief) albuterol sulfate 90 mcg/actuation 1 inh inhalation QID PRN shortness 04/13/25 aerosol inhaler (Ventolin HFA) of breath or wheezing 3 months #8.5 grams cetirizine 10 mg tablet (All Day 10 mg PO QDAY PRN allergy symptoms 04/13/25 Allergy (cetirizine)) 1 month #30 tabs hydroxyzine HCl 25 mg tablet 25 mg PO BID PRN anxiety #30 tabs 04/13/25 polyethylene glycol 3350 17 4 g PO QDAY #238 grams 04/13/25 gram/dose oral powder (Miralax) diclofenac sodium 1 % topical gel 2 g topical QID PRN For Arthritis 04/15/25 pain #100 grams Allergies Allergy/AdvReac Type Severity Reaction Status Date / Time No Known Allergies Allergy Verified 04/13/25 10:28 Review of Systems Constitutional Constitutional: Denies headache(s) and Reports malaise Eyes Eyes: Denies change in vision and Denies diplopia ENT Ears, Nose, Mouth, and Throat: Denies headache(s), Denies throat swelling, Denies tongue swelling and Denies vertigo Cardiovascular Cardiovascular: Reports chest pain and Denies dyspnea Respiratory Respiratory: Denies cough and Denies dyspnea Gastrointestinal Gastrointestinal: Denies abdominal pain, Denies nausea and Denies vomiting Musculoskeletal Musculoskeletal: Denies back pain, Denies numbness and Denies tingling Neurologic Neurologic: Denies headache(s), Denies numbness, Denies tingling and Denies vertigo Psychiatric Psychiatric: Reports anxiety, Denies depression, Denies homicidal ideation and Denies suicidal ideation Endocrine Endocrine: Denies cold intolerance and Denies heat intolerance Allergic/Immunologic Allergic/Immunologic: Denies throat swelling and Denies tongue swelling Past Medical History Past Medical History CARDIAC: Negative Cardiac Disorders or Congestive Heart Failure RESPIRATORY: Negative Chronic Obstructive Pulmonary Disease (COPD) GASTROINTESTINAL: Negative Gastrointestinal Disorders GENITOURINARY: Negative Renal Disease REPRODUCTIVE: Positive Previous Pregnancies ENT: Positive Deafness ENDOCRINE: Negative Diabetes Mellitus Type 1 or Diabetes Mellitus Type 2 HEMATOLOGIC: Negative Blood Disorders or Anemia Surgical History SURGICAL: Positive Section Social History SMOKING STATUS: Never smoker SUBSTANCE USE: does not use ED Exam General Limitations: Present no limitations General appearance: Present alert and in no apparent distress Head Head exam: Present atraumatic Eye Eye exam: Present normal appearance, PERRL and EOMI ENT ENT exam: Present normal exam, normal oropharynx and mucous membranes moist Neck Neck exam: Present normal inspection, full ROM and trachea midline Chest Chest inspection: Present normal inspection and symmetric chest wall rise Respiratory Respiratory exam: Present normal lung sounds bilaterally Cardiovascular Cardiovascular exam: Present regular rate, normal rhythm and normal heart sounds Abdominal Exam Abdominal exam: Present soft and normal bowel sounds Extremities Exam Extremities exam: Present normal inspection and full ROM Back Exam Back exam: Present normal inspection and full ROM Neurological Exam Neurological exam: Present alert, oriented X3 and CN II-XII intact Psychiatric Psychiatric exam: Present normal affect and normal mood Skin Skin exam: Present warm, dry, intact and normal color Course Course Course Narrative: 49-year-old female with a history of anxiety hypertension and medication noncompliance reports with complaints of left-sided chest pain. Patient's chest x-ray is without infiltrates or opacities CBC and CMP unremarkable troponin is negative and EKG shows normal sinus rhythm no ischemia or STEMI is noted. Differential diagnosis includes anxiety viral syndrome muscle skeletal pain. Patient is stable nontoxic-appearing with stable vital signs she will be discharged home advised to follow-up with primary care provider. Advised that if symptoms worsen return to the emergency department Quality Measures none Orders Category Date Time Status EKG (ED ONLY) *Do not use* NOW Care 07/19/25 23:42 Completed EKG (ED Only) Stat Exams 07/19/25 23:42 Ordered XR chest 2V Stat Exams 07/19/25 23:42 Completed CBC Stat Lab 07/19/25 23:54 Completed CMP [Comprehensive Metabolic Panel] Stat Lab 07/19/25 23:54 Completed Troponin I Stat Lab 07/19/25 23:54 Completed Vital Signs Vital signs: Vital Signs Temperature 98.5 F 07/19/25 22:31 Pulse Rate 73 07/19/25 22:31 Respiratory Rate 16 07/19/25 22:31 Blood Pressure 188/79 H 07/19/25 22:31 Pulse Oximetry (%) 96 10/27/25 22:31 Oxygen Delivery Method Room Air 07/19/25 22:31 PROCEDURES: EKG Interpretation #1: EKG Impression: Normal sinus rhythm, No acute ST-T changes and No ischemic changes Discharge Plan Plan Patient Disposition: HOME (Self Care) Prescriptions/Referrals Prescriptions/Med Rec: No Action bisacodyl [Dulcolax (bisacodyl)] 5 mg tablet,delayed release (DR/EC) 5 mg PO QHS 30 Days Qty: 30 1RF psyllium husk 0.4 gram capsule 0.4 g PO QDAY PRN (Reason: constipation) Qty: 30 0RF celecoxib 100 mg capsule 100 mg PO BID PRN (Reason: breakthrough pain, severe) Qty: 30 0RF triamcinolone acetonide 0.5 % ointment 1 applic topical BID Qty: 15 0RF albuterol sulfate [Ventolin HFA] 90 mcg/actuation HFA aerosol inhaler 1 inh inhalation QID PRN (Reason: shortness of breath or wheezing) 90 Days Qty: 8.5 2RF Rx Instructions: Take 1 inhalationas needed cetirizine [All Day Allergy (cetirizine)] 10 mg tablet 10 mg PO QDAY PRN (Reason: allergy symptoms) 30 Days Qty: 30 2RF polyethylene glycol 3350 [Miralax] 17 gram/dose powder 4 g PO QDAY Qty: 238 1RF hydroxyzine HCl 25 mg tablet 25 mg PO BID PRN (Reason: anxiety) Qty: 30 0RF Rx Instructions: Take 1 tablet as needed for anxiety Wegovy 0.25 mg/0.5 mL pen injector 0.25 mg subcut QWEEK Qty: 2 3RF Rx Instructions: administer weeks 1 through 4 of therapy metoclopramide HCl 10 mg tablet 10 mg PO Q6H PRN (Reason: nausea or constipation) Qty: 60 0RF prednisone 5 mg tablet 5 mg PO BID 30 Days Qty: 60 2RF Taper: Prednisone Taper 15 mg DAILY for 10 Days and 24 Hours 10 mg DAILY for 10 Days and 24 Hours 15 mg DAILY for 10 Days and 24 Hours Benefiber Sugar Free (dextrin) 3 gram/4 gram powder 1 packet PO QDAY Qty: 152 1RF Rx Instructions: mix into at least 4 oz water or juice before administering dicyclomine 20 mg tablet 20 mg PO TID Qty: 30 0RF famotidine 20 mg tablet 20 mg PO BID Qty: 30 0RF diclofenac sodium 1 % gel 2 g topical QID MDD QID PRN (Reason: For Arthritis pain) Qty: 100 1RF Rx Instructions: apply to single elbow, wrist or hand; cyclobenzaprine 10 mg tablet 10 mg PO TID PRN (Reason: muscle spasm) Qty: 20 0RF sucralfate [Carafate] 100 mg/mL suspension 5 ml PO QID Qty: 400 0RF Rx Instructions: swish in mouth and swallow; use after food/drink cetirizine 10 mg tablet 10 mg PO QDAY PRN (Reason: allergy symptoms) Qty: 14 0RF fluticasone propionate [Flonase Allergy Relief] 50 mcg/actuation spray,suspension 2 spray intranasal QDAY MDD No more than once a day Qty: 16 0RF Rx Instructions: administer into each nostril Referrals: No Primary/Family,Physician [Primary Care Provider] - In 1 week Problem List Clinical Impression: Anxiety, Non-cardiac chest pain Patient/Caregiver Discharge Instructions Discharge Activity: activity as tolerated Education Materials: ED Anxiety Reaction, ED Chest Pain, Noncardiac, ED Low-Salt Diet Additional Instructions: Your lab test are normal your pain does not appear to be caused by your heart or lungs. You should follow-up with your primary care provider for further evaluation and request to see a fertilizing machine operator. Remember to take your blood pressure medicine every day also reduce the amount of salt you intake. Return to the emergency department if symptoms worsen Print Language: Sign Language Stand Alone Forms: Audrey Award Info., Patient Portal Info Letter MDM Clinical Information Provided by: patient Medical Records reviewed None Meds/Rx considered, not ordered None Labs/Rad/Tests considered, not ordered None
[2025-07-20 00:40] LABS: Alanine Aminotransferase 19 U/L (10-49); Albumin, Serum 5.1 gm/dL (3.5-5.0); Albumin/Globulin Ratio 2.1 (1.2-2.2); Alkaline Phosphatase 90 U/L (46-116); Anion Gap 10 (7-16); Aspartate Amino Transferase 19 U/L (0-34); BUN/Creatinine Ratio 12 Ratio (12-20); Bilirubin,Total 0.4 mg/dL (0.3-1.2); Blood Urea Nitrogen 11 mg/dL (9-23); Calcium 9.5 mg/dL (8.3-10.6); Calcium (Corrected) 9.5 mg/dL (8.5-10.1); Carbon Dioxide 30.9 mMol/L (20.0-31.0); Chloride 103 mMol/L (98-107); Creatinine (Component) 0.9 mg/dL (0.6-1.3); Estimated Creatinine Clearance 71.6 mL/min (>60); Globulin 2.4 gm/dL (2.3-3.5); Glucose 108 mg/dL (74-106); Osmolality,Calculated 287 (275-295); Potassium 3.7 mMol/L (3.4-5.1); Sodium 144 mMol/L (136-145); Total Protein 7.5 gm/dL (5.7-8.2); Troponin I < 0.002 ng/mL (0.0-0.045); eGFR > 60 See Note
[2025-07-20 00:43] LABS: Basophils # (Auto) 0.1 Thou/mm3 (0.0-0.2); Basophils % (Auto) 1 % (0-2.5); Eosinophils # (Auto) 0.2 Thou/mm3 (0.0-0.5); Eosinophils % (Auto) 2 % (0-10); Hematocrit 41.8 % (36.0-46.0); Hemoglobin 13.7 g/dL (12.0-16.0); Immature Granulocytes Auto 0.03 Thou/mm3 (0.00-0.00); Lymphocytes # (Auto) 3.3 Thou/mm3 (1.0-4.8); Lymphocytes % (Auto) 30 % (10-50); Mean Corpuscular HGB Conc 32.8 g/dl (31.0-37.0); Mean Corpuscular Hemoglobin 28.9 pg (25.0-35.0); Mean Corpuscular Volume 88 fL (80-100); Monocytes # (Auto) 0.8 Thou/mm3 (0.0-0.8); Monocytes % (Auto) 8 % (0-12); Neutrophils # (Auto) 6.3 Thou/mm3 (1.8-7.7); Neutrophils % (Auto) 59 % (37-80); Nucleated Red Blood Cell # 0.00 Thou/mm3 (0.00-0.00); Nucleated Red Blood Cell % 0 /100 WBC (0); Platelet Count 304 Thou/mm3 (140-440); RDW Standard Deviation 42.8 fL (36.4-46.3); Red Blood Count 4.74 Miln/mm3 (4.00-5.20); White Blood Count 10.7 Thou/mm3 (3.6-11.0)
[2025-07-20 02:47] VITALS: BP 155/83; PULSE 72; RESP 18; TEMP 36.8; O2SAT 97
== END 2025-07-20 02:48 | disposition home or self-care (01) ==
PROVIDERS: Physician Assistant; Emergency Provider Emergency Medicine
DX: F41.9 Anxiety disorder, unspecified (principal); I10 Essential (primary) hypertension; K59.00 Constipation, unspecified
CPT/HCPCS: 36415; 71046; 80053; 84484; 85025; 93005; 99283

== ENCOUNTER 2025-08-06 12:58 | Outpatient (AMB) | payer MEDICARE, MEDICAID, SELFPAY ==
[2025-08-06 13:12] VITALS: BP 135/88; PULSE 68; RESP 18; TEMP 35.9; O2SAT 96; BMI 41.6
--- NOTE | 2025-08-06 13:12 | PD.RESCLINIC ---
Vital Signs 08/06/25 13:12 Height 1.45 m Height Method Stated Weight 87.26 kg Weight Measurement Method Standing Scale BMI 41.6 BP 135/88 H Blood Pressure Source Automatic Cuff Blood Pressure Location Right Upper Arm Position Sitting Respiration 18 Pulse 68 Pulse Source Monitor Temp 96.6 F L Temp Source Temporal Artery Scan Pulse Oximetry (%) 96 Oxygen Delivery Method Room Air Allergies/Meds Allergies & Medications Allergies No Known Allergies Allergy (Verified 08/06/25 13:13) Medication Reconciliation prednisone 5 mg tablet 5 mg PO BID 1 month #60 tabs 11/26/24 [Rx Confirmed 08/06/25] albuterol sulfate 90 mcg/actuation aerosol inhaler (Ventolin HFA) 1 inh inhalation QID PRN shortness of breath or wheezing 3 months #8.5 grams 08/06/25 [Rx] bisacodyl 5 mg tablet,delayed release (Dulcolax (bisacodyl)) 5 mg PO QHS 30 days #30 tabs 08/06/25 [Rx] celecoxib 100 mg capsule 100 mg PO BID PRN breakthrough pain, severe #30 caps 08/06/25 [Rx] cetirizine 10 mg tablet 10 mg PO QDAY PRN allergy symptoms #14 tabs 08/06/25 [Rx] cyclobenzaprine 10 mg tablet 10 mg PO TID PRN muscle spasm #20 tabs 08/06/25 [Rx] diclofenac sodium 1 % topical gel 2 g topical QID PRN For Arthritis pain #100 grams 08/06/25 [Rx] famotidine 20 mg tablet 20 mg PO BID #30 tabs 08/06/25 [Rx] fluticasone propionate 50 mcg/actuation nasal spray,suspension (Flonase Allergy Relief) 2 spray intranasal QDAY #16 grams 08/06/25 [Rx] hydroxyzine HCl 25 mg tablet 25 mg PO BID PRN anxiety #30 tabs 08/06/25 [Rx] metoclopramide HCl 10 mg tablet 10 mg PO Q6H PRN nausea or constipation #60 tabs 08/06/25 [Rx] polyethylene glycol 3350 17 gram/dose oral powder (Miralax) 4 g PO QDAY #238 grams 08/06/25 [Rx] psyllium husk 0.4 gram capsule 0.4 g PO QDAY PRN constipation #30 caps 08/06/25 [Rx] triamcinolone acetonide 0.5 % topical ointment 1 applic topical BID #15 grams 08/06/25 [Rx] OLIVE Intake Visit Data Collection New Patient or Established: Established Patient (seen at [facility] within 3 years) Seen by Clinical Staff ONLY (RN/OLIVE): No Pain Present Currently: No Pain scale:: 0 Pain Scale Used: [place]/Numerical It Operations Specialist Required: No PCP or OBGYN visit in last 3 months: Yes Hx Now: No Do You Feel Safe at Home: Yes Authorities Contacted: N/A Smoking Status Smoking Status: Never smoker Immunization / Flu Flu Vaccine in the Last 12 Months: No Flu Vaccine Exclusion Criteria: No Exclusion Criteria Past Medical History Past Medical History CARDIAC: Negative Cardiac Disorders or Congestive Heart Failure RESPIRATORY: Negative Chronic Obstructive Pulmonary Disease (COPD) GASTROINTESTINAL: Negative Gastrointestinal Disorders GENITOURINARY: Negative Renal Disease REPRODUCTIVE: Positive Previous Pregnancies ENT: Positive Deafness ENDOCRINE: Negative Diabetes Mellitus Type 1 or Diabetes Mellitus Type 2 HEMATOLOGIC: Negative Blood Disorders or Anemia Surgical History SURGICAL: Positive Section Social History SMOKING STATUS: Smoking status: Never smoker ALCOHOL: Alcohol Intake: Never LIVES WITH: Lives With: Family Patient Portal Questionaires PHQ-9 PHQ-2 Over the last 2 weeks, how often have you been bothered by any of the following problems? 1. Little interest or pleasure in doing things: not at all 2. Feeling down, depressed, or hopeless: not at all Total score: 0 Social History Tobacco History Smoking Status: Never smoker Alcohol History Alcohol Intake: Never Domestic Abuse History Do You Feel Safe at Home: Yes Review of Systems Report any current symptoms Only answer those that you have currently: Past Medical History Past Medical History Have you ever been diagnosed with any of the following: Cardiology Problems Congestive Heart Failure: No Respiratory Problems Chronic Obstructive Pulmonary Disease (COPD): No Genital/Urinary Problems Renal Disease: No Reproductive Problems Previous Pregnancies: Yes Head,Eye,Nose,Throat Problems Deafness: Yes Endocrine Problems Diabetes Mellitus Type 1: No Diabetes Mellitus Type 2: No Blood Problems Anemia: No History of Present Illness HPI Narrative Patient is a 49 year old female with past medical history significant for intellectual disability, deafness, htn, anxiety, asthma who presents to the clinic for a hospital follow up for anxiety. Patient is attended with her social media content specialist who is communicating for her. Patient states that she went to the ED here at [facility] 07/20/2025 for anxiety and was found to have high blood pressure. soda worker informed me that she comes into the ED about once per month for similar reasons. soda worker informed me that she did not take her anxiety medication that morning, but was able to calm down and become stabilized after anxiety taking the medication. Patient had CXR and EKG done which were unremarkable. soda worker informed me she lives with roomates at a room and board housing, is looking to start living on her own. Patient currently denies having any anxiety, palpitations, sweating, chest tightness, pressure or any general feelings of distress. Patient endorses occasional constipation that has been well controlled with medication. Patient's social media content specialist informed me that she needs refills on her medications as well (refill orders placed). Objective/Exam Narrative Physical exam: General: No acute distress; A&Ox3; communicating via sign-language Skin: Warm, dry, intact, no obvious rash. HENT: NCAT, EOMI/PERRL, not icteric. External ears normal. No rhinorrhea. Moist mucous membranes; Hearing aid L ear Cardiovascular: Regular rate and rhythm, no murmur, +S1/S2. Respiratory: Lungs CTAB GI: Soft, nontender, non-distended. No guarding or rebound tenderness. : No suprapubic tenderness. No flank tenderness bilaterally. Extremities: no edema, no cyanosis, no clubbing. Extremity pulses present Neuro: Grossly nonfocal. Moving all 4 extremities. CN not formally tested but appear grossly intact. Psychiatric: Cooperative, appropriate affect. Assessment & Plan Diagnosis / Problem List (1) Anxiety: Status: Chronic Assessment & Plan: Patient states that she went to the ED here at [facility] 07/20/2025 for anxiety with radiating chest pain, was found to have high blood pressure. soda worker informed me that she did not take her anxiety medication that morning, but was able to calm down and become stabilized after anxiety taking the medication. Patient had CXR and EKG done which were unremarkable. Patient currently denies having any anxiety, palpitations, sweating, chest tightness, pressure or any general feelings of distress. Plan: -Continue hydroxizine as needed -Continue to watch out for and avoid anxiety triggers -refilled hydroxyzine (2) Asthma: Status: Chronic Qualifiers: Asthma severity: mild Asthma persistence: intermittent Asthma complication type: uncomplicated Qualified Code(s): J45.20 - Mild intermittent asthma, uncomplicated Assessment & Plan: Endorsed that she had asthma since for many years. Using albuterol inhaler as needed, usually when she is sick, per social media content specialist. Denied recent exacerbations Plan: -continue using albuterol prn -refilled albuterol (3) Morbidly obese: Status: Chronic Assessment & Plan: Patient's BMI 41.6 Patient has been counseled on dietary habits for weight loss and general health in the past Plan: -Patient given list of foods okay to eat & ones to avoid -Went through and counseled patient on diet and reasons for that (4) Arthritis of right knee: Status: Chronic Assessment & Plan: Patient has some chronic knee discomfort from arthritis. Has been stable though, no acute flares/problems Plan: -continue diclofenac 1% topical -exercise as tolerated (5) Constipation: Status: Chronic Assessment & Plan: Patient states her constipation is well controlled. States she has cut back, only taking constipation meds 3x per week due to diarrhea. Plan: -continuing anti-constipation medication regimen (refilled meds as well) Office Procedures [facility] Level of Care Nursing/Assessment Patient Status: Established Patient Nursing Assessment/Reassessment: Medication Reconciliation, Update PMH in EMR and Vital Signs Coordination of Care: Complex Care and Chronic Disease 1-5, Complex Care/Chronic Disease 5 or more, Consent,records obtained, informed consent, Lab and Imaging orders, Results/Orders obtained and Staff clarify orders Established Patient Charge Established Patient Point Assignment: 125 Established Patient Point Charge: EP Level 4 (120-155)
== END 2025-08-06 13:51 | disposition home or self-care (01) ==
LOC: HODAHC 12:58
PROVIDERS: Supervising Provider Internal Medicine
DX: F41.9 Anxiety disorder, unspecified (principal); I10 Essential (primary) hypertension; F79 Unspecified intellectual disabilities; J45.20 Mild intermittent asthma, uncomplicated; E66.01 Morbid (severe) obesity due to excess calories; Z68.41 Body mass index [BMI] 40.0-44.9, adult; M17.11 Unilateral primary osteoarthritis, right knee; K59.00 Constipation, unspecified
CPT/HCPCS: 99214; G0463

== ENCOUNTER 2025-08-23 12:39 | Emergency (ER) | payer MEDICARE, MEDICAID, SELFPAY ==
[2025-08-23 12:56] VITALS: BP 132/83; PULSE 79; RESP 18; TEMP 36.3; O2SAT 94
[2025-08-23 13:25] VITALS: PULSE 82; RESP 16; O2SAT 95
--- NOTE | 2025-08-23 13:29 | EKG_ITS ---
[facility] Test Date: 2025-08-23 Pat Name: LINNEA LANCE Department: Room: - Gender: Female Spray Maker: : 1975 Requested By: Tg Prado Order Number: [id number] Reading MD: Tg Prado Measurements Intervals Jemison Rate: 72 P: 23 MT: 168 QRS: 20 QRSD: 85 T: 35 QT: 396 QTc: 436 Interpretive Statements SINUS RHYTHM LOW QRS VOLTAGE IN PRECORDIAL LEADS [QRS DEFLECTION < 1.0 mV IN CHEST LEADS] Compared to ECG 07/20/2025 00:00:12 Low QRS voltage now present /store/S0/[id number]
[2025-08-23 13:30] VITALS: BMI 68.8
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
[2025-08-23 13:31] VITALS: BP 125/99; PULSE 75; RESP 10; O2SAT 94
--- NOTE | 2025-08-23 13:49 | PC.NURSE ---
Spoke with Genevieve on the language line to communicate using ASL. ID [id number]
[2025-08-23 13:59] LABS: Basophils # (Auto) 0.0 Thou/mm3 (0.0-0.2); Basophils % (Auto) 1 % (0-2.5); Eosinophils # (Auto) 0.1 Thou/mm3 (0.0-0.5); Eosinophils % (Auto) 2 % (0-10); Hematocrit 41.8 % (36.0-46.0); Hemoglobin 13.9 g/dL (12.0-16.0); Immature Granulocytes Auto 0.02 Thou/mm3 (0.00-0.00); Lymphocytes # (Auto) 2.4 Thou/mm3 (1.0-4.8); Lymphocytes % (Auto) 39 % (10-50); Mean Corpuscular HGB Conc 33.3 g/dl (31.0-37.0); Mean Corpuscular Hemoglobin 29.2 pg (25.0-35.0); Mean Corpuscular Volume 88 fL (80-100); Monocytes # (Auto) 0.4 Thou/mm3 (0.0-0.8); Monocytes % (Auto) 7 % (0-12); Neutrophils # (Auto) 3.2 Thou/mm3 (1.8-7.7); Neutrophils % (Auto) 51 % (37-80); Nucleated Red Blood Cell # 0.00 Thou/mm3 (0.00-0.00); Nucleated Red Blood Cell % 0 /100 WBC (0); Platelet Count 306 Thou/mm3 (140-440); RDW Standard Deviation 44.8 fL (36.4-46.3); Red Blood Count 4.76 Miln/mm3 (4.00-5.20); White Blood Count 6.2 Thou/mm3 (3.6-11.0)
[2025-08-23 14:17] LABS: Ammonia 29 uMol/L (11-32)
[2025-08-23 14:18] LABS: Alanine Aminotransferase 22 U/L (10-49); Albumin, Serum 4.9 gm/dL (3.5-5.0); Albumin/Globulin Ratio 1.8 (1.2-2.2); Alcohol, Blood Medical 115.0 mg/dL (0-10.0); Alkaline Phosphatase 96 U/L (46-116); Anion Gap 12 (7-16); Aspartate Amino Transferase 27 U/L (0-34); BUN/Creatinine Ratio 17 Ratio (12-20); Bilirubin,Total 0.2 mg/dL (0.3-1.2); Blood Urea Nitrogen 10 mg/dL (9-23); Calcium 9.4 mg/dL (8.3-10.6); Calcium (Corrected) 9.4 mg/dL (8.5-10.1); Carbon Dioxide 22.5 mMol/L (20.0-31.0); Chloride 109 mMol/L (98-107); Creatinine (Component) 0.6 mg/dL (0.6-1.3); Estimated Creatinine Clearance 159.9 mL/min (>60); Globulin 2.8 gm/dL (2.3-3.5); Glucose 121 mg/dL (74-106); Lipase 32 U/L (12-53); Magnesium 2.3 mg/dL (1.6-2.6); Osmolality,Calculated 284 (275-295); Potassium 4.5 mMol/L (3.4-5.1); Sodium 143 mMol/L (136-145); Total Protein 7.7 gm/dL (5.7-8.2); eGFR > 60 See Note
[2025-08-23 14:29] LABS: Collection Type, Urine Clean Catch
[2025-08-23 14:53] LABS: Bacteria,Urine Rare; Bilirubin,Urine Negative (Negative); Blood,Urine Negative (Negative); Clarity,Urine Clear (Clear/Hazy); Color,Urine Colorless (Lt Yel-Yel); Culture Indicated,Urine Not Indicated; Glucose, Urine Negative (Negative); Ketones,Urine Negative (Negative); Leukocyte Esterase,Urine Negative (Negative); Nitrite,Urine Negative (Negative); PH,Urine 5.5 (5.0-7.0); Protein,Urine Negative (Neg - Trace); RBC,Urine 1 /hpf (0-3); Specific Gravity,Urine 1.011 (1.001-1.035); Squamous Epithelial Cell,Urine 1 /hpf (0-5); Urobilinogen,Urine Negative mg/dL (0.0-1.0); WBC,Urine < 1 /hpf (0-5)
[2025-08-23 15:28] VITALS: BP 125/99; PULSE 70; RESP 18; TEMP 36.4; O2SAT 99
--- NOTE | 2025-08-23 16:02 | XR_ITS ---
Examination: CT brain head without contrast. 2-D sagittal coronal reconstructions Date and time of exam: August 23, 2025, 1643 hours, comparison July 27, 2024 INDICATIONS: Syncopal episode today followed by headache CTDI: vol (mGy): 48.1 DLP: (mGycm): 909 Technique: Multiple CT axial sections of the brain have been obtained, 5 mm slice thickness. Contrast has not been administered. 2-D sagittal, coronal reconstructions have been obtained Low dose protocols were performed. One or more of the following dose reduction techniques were used; automated exposure control, adjustment of the mA and/or KV according to patient size, use of iterative reconstruction technique. Findings: No significant ventricular enlargement. Again noted mild left cerebral hemiatrophy Intra-axial or extra-axial hemorrhage density is not seen. No mass effect or midline shift Basal cisterns are not remarkable. Fourth ventricle is midline. Cranial vault intact. Impression: Negative for acute hemorrhage, mass effect or midline shift Advise clinical correlation and follow-up accordingly
[2025-08-23 16:09] LABS: Amphetamine/Methamp Scrn,U Negative (Negative); Barbiturate Screen,Urine Negative (Negative); Benzodiazepines Screen,Urine Negative (Negative); Benzoylecgonine Screen, Ur Negative (Negative); Fentanyl Screen,Urine Negative (Negative); Opiate Screen,Urine Negative (Negative); THC Screen,Urine Negative (Negative)
[2025-08-23 17:22] VITALS: BP 131/93; PULSE 83; RESP 15; TEMP 36.6; O2SAT 95
--- NOTE | 2025-08-23 18:47 | PC.NURSE ---
DC instructions reviewed with language line and spoke with Renata #[id number] for ASL.
[2025-08-23 19:13] VITALS: BP 131/93; PULSE 87; RESP 20; O2SAT 98
== END 2025-08-23 19:28 | disposition home or self-care (01) ==
PROVIDERS: Emergency Provider Emergency Medicine
DX: F10.929 Alcohol use, unspecified with intoxication, unspecified (principal); R55 Syncope and collapse; R51.9 Headache, unspecified; R94.31 Abnormal electrocardiogram [ECG] [EKG]; Y90.5 Blood alcohol level of 100-119 mg/100 ml
CPT/HCPCS: 36415; 70450; 80053; 80307; 80320; 81001; 82140; 83690; 83735; 85025; 93005; 99283; G0480